=== PATIENT | female | born 1990 | race Caucasian/White ===

== ENCOUNTER 2016-08-07 07:53 | Day surgery (SDC) | payer MEDICAID ==
[2016-08-05 09:59] VITALS: BMI 22.2
[~2016-08-07 07:53] MED LIST: SODIUM CHLORIDE 0.9% 1,000 ML IV SCH
[2016-08-07 08:23] VITALS: RESP 18; TEMP 98
[2016-08-07 10:20] VITALS: BP 139/62; PULSE 92
--- NOTE | 2016-08-14 08:12 | CE ---
DATE OF SERVICE: TILT TABLE TEST Patient referred by Dr. Givens and Dr. Etienne. A 26-year-old female with recurrent dizzy spells for a tilt table test. Baseline 12-lead ECG shows sinus rhythm with normal IN interval, narrow QRS, normal ST segments. Cardiac intervals are normal. Incomplete right bundle branch block noted. QRS with 78 ms. Tilt table test was performed. Baseline blood pressure 131/79 mmHg. Baseline heart rate is 79 beats a minute. She was tilted upright at an angle of 70 degrees per protocol. Patient's blood pressure remained stable. Heart rate increased in the first initial 10 minutes. There was increase in heart rate, dropped to 109 beats a minute. Maximum heart rate is 121 beats a minute. She felt her heart pounding. No change in blood pressure. She was laid supine at the end of the procedure and the heart rate decreased to 95 beats a minute. IMPRESSION: 1. No evidence for neurocardiogenic syncope. 2. Possible mild orthostatic intolerance.
== END 2016-08-07 10:30 | disposition home or self-care (01) ==
LOC: CATHEP 07:53
PROVIDERS: ATTEND Internal Medicine Clinical Cardiac Electrophysiology
DX: R42 Dizziness and giddiness (principal); Z82.49 Family history of ischemic heart disease and other diseases of the circulatory system; Z88.0 Allergy status to penicillin
CPT/HCPCS: 81025; 93005; 93660

== ENCOUNTER → 2020-09-03 | Outpatient (CLI) | payer MEDICAID, BC ==
[2020-09-03 19:58] LABS: HCT 35.1 % (37.2-46.3); HGB 11.6 g/dL (12.0-15.0); MCH 32.7 pg (27.0-32.0); MCV 98.9 fL (80.0-97.0); Mean Platelet Volume 8.7 fL (9.5-12.2); Platelet Count 257 X 10*3/uL (140-440); RBC 3.55 X 10*6/uL (4.10-5.20); RDW 12.7 % (11.5-14.5); WBC 12.27 X 10*3/uL (4.50-10.00)
== END | disposition home or self-care (01) ==
LOC: LABWHC1 12:01
PROVIDERS: ATTEND Obstetrics & Gynecology Obstetrics
DX: Z36.9 Encounter for antenatal screening, unspecified (principal)
CPT/HCPCS: 36415; 82950; 85027

== ENCOUNTER 2020-11-26 06:02 | Inpatient (IN) | payer MEDICAID, BC ==
[2020-11-26] MEDS ORDERED: LIDOCAINE 0.5% (PF) 5 MG/ML (50 ML SDV) SQ PRN (06:22)
[2020-11-26] MEDS ORDERED: TERBUTALINE 1 MG/ML VIAL SQ PRN (06:22)
[2020-11-26] MEDS ORDERED: CARBOPROST TROMETHAMINE 250 MCG/ML 1 ML AMP IM PRN (06:22)
[2020-11-26] MEDS ORDERED: OXYTOCIN 10 UNIT/ML 1 ML VIAL IM PRN (06:22)
[2020-11-26] MEDS ORDERED: METHYLERGONOVINE 0.2 MG/ML 1 ML AMP IM PRN (06:22)
[2020-11-26] MEDS: LACTATED RINGERS 1,000 ML IV SCH ×2 (06:43→10:21)
[2020-11-26] MEDS: OXYTOCIN 30 UNITS/500 ML NS 30 UNIT in SALINE 1 500ML.BAG IV SCH ×2 (06:44→16:05)
[2020-11-26 07:11] LABS: Basophils % (A) 0 %; Eosinophils # (A) 0.1 k/uL (0-0.7); Eosinophils % (A) 1 %; HCT 36.8 % (34.0-46.0); HGB 11.9 gm/dL (11.4-16.0); Lymphocytes # (A) 1.8 k/uL (1.0-4.8); Lymphocytes % (A) 21 %; MCH 30.9 pg (25.0-35.0); MCHC 32.3 g/dL (31.0-37.0); MCV 95.6 fL (80.0-100.0); Mean Platelet Volume 6.8; Monocytes # (A) 0.6 k/uL (0-1.0); Monocytes % (A) 6 %; Neutrophils # (A) 6.3 k/uL (1.3-7.7); Neutrophils % (A) 70 %; Platelet Count 246 k/uL (150-450); RBC 3.86 m/uL (3.80-5.40); RDW 13.8 % (11.5-15.5); WBC 8.9 k/uL (3.8-10.6)
[2020-11-26] MEDS ORDERED: BUTORPHANOL 1 MG/ML 1 ML VIAL IV PRN (08:25)
[2020-11-26] MEDS ORDERED: ROPIVACAINE 5MG/ML 20ML VIAL ONE (10:31)
[2020-11-26] MEDS ORDERED: SODIUM CHLORIDE 0.9% 100 ML BAG ONE (10:31)
[2020-11-26] MEDS ORDERED: fentaNYL (PF) 50 MCG/ML 5 ML AMP ONE (10:31)
[2020-11-26] MEDS ORDERED: SIMETHICONE 80 MG CHEWABLE PO PRN (15:48)
[2020-11-26] MEDS ORDERED: ZOLPIDEM 5 MG TAB PO PRN (15:48)
[2020-11-26] MEDS ORDERED: diphenhydrAMINE 50 MG CAP PO PRN (15:48)
[2020-11-26] MEDS ORDERED: LANOLIN CREAM 5 GM TUBE TOPICAL PRN (15:48)
[2020-11-26] MEDS ORDERED: diphenhydrAMINE 50 MG/ML 1 ML VIAL IVP PRN ×2 (15:48)
[2020-11-26] MEDS ORDERED: diphenhydrAMINE 25 MG CAP PO PRN (15:48)
[2020-11-26] MEDS ORDERED: BENZOCAINE/MENTHOL SPRAY 1 GM/SPRAY AEROSOL TOPICAL PRN (15:48)
[2020-11-26] MEDS ORDERED: HYDROCORTISONE 2.5% RECTAL CREAM 30 GM TUBE RECTAL PRN (15:48)
[2020-11-26] MEDS ORDERED: HYDROcodone/APAP 5-325MG 1 EACH TAB PO PRN (15:48)
--- NOTE | 2020-11-26 15:52 | P.PROBDLV ---
Vaginal Delivery Note - . Vaginal Delivery Note: This is a 30-year-old 1 para 0 at 39-2/7 weeks that presented to labor and delivery for induction of labor. Patient been receiving routine care which had been essentially on compensated. Patient did contract COVID 19 during the . She has done well. She was admitted to labor and delivery Pitocin induction of labor was begun per hospital protocol. Patient underwent amniotomy and clear fluid was obtained. Patient did request epidural placement and this was placed by the anesthesia Department without difficulty. Patient progressed to complete began pushing and had a normal spontaneous vaginal delivery of a viable female at 1519, weight of 8 lbs. 3 oz. and Apgars of 9 and 9 at one and 5 minutes respectively. Patient did sustain a second degree midline vaginal laceration along with a periurethral laceration. After two-minute delayed the umbilical cord was doubly clamped and cut and the symptoms delivered spontaneously intact with a three-vessel cord. The second- degree midline laceration was repaired in usual fashion with 3-0 Rapide. The periurethral laceration was repaired with a single stitch of 4-0 chromic. Hemostasis was appreciated both lacerations. Rectal exam was performed and found to be normal. Uterus noted to be firm and below the umbilicus. Estimated blood loss 300 mL. Patient and tolerated delivery well and are resting comfortable he.
[2020-11-26] MEDS ORDERED: OXYTOCIN 30 UNITS/500 ML NS 30 UNIT in SALINE 1 500ML.BAG IV SCH (16:00)
[2020-11-26] MEDS: IBUPROFEN 600 MG TAB PO SCH (16:04)
--- NOTE | 2020-11-26 18:01 | P.HPOB ---
History of Present Illness H&P Date: 11/26/20 Chief Complaint: IUP at 39 weeks This is a 30-year-old 1 para 0 at 39 weeks of that presents for induction of labor. Patient has been receiving routine care which has been essentially uncomplicated. Patient notes good movement denies vaginal bleeding or loss of fluid. She has been malu regularly for weeks now. Patient has a blood type of AB+, rubella status nonimmune, hepatitis B surface engine negative, HIV negative, RPR negative, GBS is positive. Review of Systems Constitutional: Denies chills, Denies fatigue, Denies fever Ears, nose, mouth and throat: Denies headache Cardiovascular: Reports leg edema Respiratory: Denies dyspnea Gastrointestinal: Denies constipation, Denies diarrhea, Denies nausea, Denies vomiting Genitourinary: Reports Past Medical History Past Medical History: No Reported History Additional Past Medical History / Comment(s): Fainted @ work, states that is why she is having this test. See Dr. Gonzales's H&P. History of Any Multi-Drug Resistant Organisms: None Reported Past Surgical History: No Surgical Hx Reported Additional Past Surgical History / Comment(s): [place] teeth. See Dr. Gonzales's H&P. Past Anesthesia/Blood Transfusion Reactions: Postoperative Nausea & Vomiting (PONV) Past Psychological History: No Psychological Hx Reported Smoking Status: Never smoker Past Alcohol Use History: None Reported, Rare Past Drug Use History: None Reported - Past Family History Mother Family Medical History: No Reported History Additional Family Medical History / Comment(s): Ulcerative Colitis Father Family Medical History: Hypertension Medications and Allergies Home Medications Medication Instructions Recorded Confirmed Type Multivitamins, Thera [Multivitamin] 1 tab PO DAILY 08/05/16 11/26/20 History Aspirin 81 mg PO DAILY 11/26/20 11/26/20 History Cetirizine HCl [Zyrtec] 10 mg PO DAILY 11/26/20 11/26/20 History Allergies Allergy/AdvReac Type Severity Reaction Status Date / Time Penicillins Allergy Rash/Hives Verified 11/26/20 06:20 Exam Osteopathic Statement: *. No significant issues noted on an osteopathic structural exam other than those noted in the History and Physical/Consult. 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 heart tones returned be category 1 and she is malu every 2-3 minutes. Results Result Diagrams: 11/26/20 06:38 Assessment and Plan (1) Term Current Visit: Yes Status: Acute Code(s): Z34.90 - ENCNTR FOR SUPRVSN OF NORMAL , UNSP, UNSP TRIMESTER SNOMED Code(s): 10542888 Plan: 30-year-old at 39 weeks of presents for induction of labor. Pitocin induction of labor is begun per hospital protocol. Options for analgesia are discussed including Stadol and epidural patient will consider. Despite spontaneous vaginal delivery later today.
[2020-11-26] MEDS: SENNOSIDES-DOCUSATE SODIUM 1 EACH TAB PO SCH (19:40)
[2020-11-26] MEDS: ACETAMINOPHEN TAB 325 MG TAB PO PRN (19:40)
[2020-11-26 20:56] VITALS: RESP 16
[2020-11-27] MEDS: IBUPROFEN 600 MG TAB PO SCH ×3 (00:01→16:07)
[2020-11-27] MEDS: ACETAMINOPHEN TAB 325 MG TAB PO PRN ×2 (03:49→11:47)
[2020-11-27] MEDS ORDERED: MEASLES-MUMPS-RUBELLA VACC/PF 12,500 UNIT/0.5 ML VIAL SQ ONE (05:31)
--- NOTE | 2020-11-27 07:43 | P.DS ---
Providers Date of admission: 11/26/20 06:02 Expected date of discharge: 11/27/20 Attending physician: Ora Bergman Primary care physician: Stated None - Discharge Diagnosis(es) (1) Term Current Visit: Yes Status: Acute (2) Status post vaginal delivery Current Visit: Yes Status: Acute Hospital Course: This is a 30-year-old G1 now P1 that presented to labor and delivery at 39-2/7 weeks for planned induction of labor. Patient had been receiving routine care which has been essentially uncomplicated. Patient was noted to be 2 cm at 36 weeks and had requested induction of labor. Patient was admitted to labor and delivery and Pitocin induction of labor was begun. Patient progressed through labor eventually becoming uncomfortable and requesting epidural placement. Epidural was placed without difficulty by the anesthesia department. Patient progressed to complete began pushing and had a normal spontaneous vaginal delivery of a viable female infant at 1519, weight of 8 lbs. 3 oz. with Apgars of 9 and 9 at one and 5 minutes respectively. Patient did sustain a second-degree vaginal laceration was repaired in the usual fashion with 3-0 Rapide. In addition she had a periurethral laceration which was repaired with a single-tooth that she of 4-0 chromic. Patient's course has been uneventful. On this day #1 she is ambulating and voiding without difficulty. She is tolerating a regular diet without nausea or vomiting. She is breast-feeding without difficulty. She states she is feeling well and would like discharge home at 24 hours. Patient Condition at Discharge: Good Plan - Discharge Summary New Discharge Prescriptions: No Action Multivitamins, Thera [Multivitamin] 1 tab PO DAILY Aspirin 81 mg PO DAILY Cetirizine HCl [Zyrtec] 10 mg PO DAILY Discharge Medication List Multivitamins, Thera [Multivitamin] 1 tab PO DAILY 08/05/16 [History] Aspirin 81 mg PO DAILY 11/26/20 [History] Cetirizine HCl [Zyrtec] 10 mg PO DAILY 11/26/20 [History] Follow up Appointment(s)/Referral(s): Ora Bergman DO [Doctor of Osteopathic Medicine] - 4 Weeks Patient Instructions/Handouts: Vaginal Delivery (GEN), Vaginal Delivery (DC) Discharge Disposition: HOME SELF-CARE
[2020-11-27] MEDS: SENNOSIDES-DOCUSATE SODIUM 1 EACH TAB PO SCH (11:06)
[2020-11-27 16:44] VITALS: BP 125/75; PULSE 89; TEMP 97.9
== END 2020-11-27 16:20 | disposition home or self-care (01) | DRG 807 ==
LOC: 4FBP 06:02
PROVIDERS: ADMIT Obstetrics & Gynecology Obstetrics; ATTEND Obstetrics & Gynecology Obstetrics
PROC: 10E0XZZ Delivery of Products of Conception, External Approach (ICD-10-PCS; principal; 2020-11-26)
PROC: 0KQM0ZZ Repair Perineum Muscle, Open Approach (ICD-10-PCS; 2020-11-26)
DX: O70.1 Second degree perineal laceration during delivery (principal); Z37.0 Single live birth; Z3A.39 39 weeks gestation of pregnancy; Z79.82 Long term (current) use of aspirin; Z82.49 Family history of ischemic heart disease and other diseases of the circulatory system
CPT/HCPCS: 85025; 86850; 86900; 86901; 88307; 90707

== ENCOUNTER 2022-03-27 06:00 | Inpatient (IN) | payer BC ==
[2022-03-27] MEDS ORDERED: CARBOPROST TROMETHAMINE 250 MCG/ML 1 ML AMP IM PRN (06:18)
[2022-03-27] MEDS ORDERED: TERBUTALINE 1 MG/ML VIAL SQ PRN (06:18)
[2022-03-27] MEDS ORDERED: OXYTOCIN 10 UNIT/ML 1 ML VIAL IM PRN (06:18)
[2022-03-27] MEDS ORDERED: METHYLERGONOVINE 0.2 MG/ML 1 ML AMP IM PRN (06:18)
[2022-03-27] MEDS ORDERED: LIDOCAINE 0.5% (PF) 5 MG/ML (50 ML SDV) SQ PRN (06:18)
[2022-03-27] MEDS ORDERED: OXYTOCIN 30 UNITS/500 ML NS 30 UNIT in SALINE 1 500ML.BAG IV SCH ×2 (06:30→13:15)
[2022-03-27 06:32] LABS: Basophils # (A) 0.1 k/uL (0-0.2); Basophils % (A) 1 %; Eosinophils # (A) 0.2 k/uL (0-0.7); Eosinophils % (A) 1 %; HCT 35.6 % (34.0-46.0); HGB 11.5 gm/dL (11.4-16.0); Hypochromasia Slight; Lymphocytes # (A) 2.2 k/uL (1.0-4.8); Lymphocytes % (A) 20 %; MCHC 32.2 g/dL (31.0-37.0); MCV 93.3 fL (80.0-100.0); Mean Platelet Volume 7.3; Monocytes # (A) 0.7 k/uL (0-1.0); Monocytes % (A) 6 %; Neutrophils # (A) 7.9 k/uL (1.3-7.7); Neutrophils % (A) 71 %; Platelet Count 280 k/uL (150-450); RBC 3.81 m/uL (3.80-5.40); RDW 13.5 % (11.5-15.5); WBC 11.1 k/uL (3.8-10.6)
[2022-03-27] MEDS: LACTATED RINGERS 1,000 ML IV SCH ×2 (06:33→11:00)
--- NOTE | 2022-03-27 08:54 | P.HPOB ---
History of Present Illness H&P Date: 03/27/22 Chief Complaint: IUP at 39 weeks This is a 31-year-old at 39-2/7 weeks that presents to labor and delivery for induction of labor. Patient has been receiving routine care which has been essentially uncomplicated. Patient notes good movement occasional contractions but denies loss of fluid or vaginal bleeding. On bloodwork this patient blood type of AB+, rubella status immune, B surface antigen negative, group beta strep is negative HIV negative, RPR is nonreactive. Review of Systems Constitutional: Denies chills, Denies fatigue, Denies fever Ears, nose, mouth and throat: Denies headache Cardiovascular: Reports leg edema Respiratory: Denies dyspnea Gastrointestinal: Denies constipation, Denies diarrhea Genitourinary: Reports Past Medical History Past Medical History: No Reported History Additional Past Medical History / Comment(s): Fainted @ work, states that is why she is having this test. See Dr. Gonzales's H&P. History of Any Multi-Drug Resistant Organisms: None Reported Past Surgical History: No Surgical Hx Reported Additional Past Surgical History / Comment(s): [place] teeth. See Dr. Gonzales's H&P. Past Anesthesia/Blood Transfusion Reactions: Postoperative Nausea & Vomiting (PONV) Past Psychological History: No Psychological Hx Reported Smoking Status: Never smoker Past Alcohol Use History: None Reported, Rare Past Drug Use History: None Reported - Past Family History Mother Family Medical History: No Reported History Additional Family Medical History / Comment(s): Ulcerative Colitis Father Family Medical History: Hypertension Medications and Allergies Home Medications Medication Instructions Recorded Confirmed Type Multivitamins, Thera [Multivitamin] 1 tab PO DAILY 08/05/16 03/27/22 History Aspirin 81 mg PO DAILY 11/26/20 03/27/22 History Cetirizine HCl [Zyrtec] 10 mg PO DAILY 11/26/20 03/27/22 History Allergies Allergy/AdvReac Type Severity Reaction Status Date / Time Penicillins Allergy Rash/Hives Verified 03/27/22 06:15 Exam Osteopathic Statement: *. No significant issues noted on an osteopathic structural exam other than those noted in the History and Physical/Consult. 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 Breathing is noted to nonlabored, heart has regular rhythm, abdomen is gravid and appropriate for gestational age, on cervical exam she is 4/80/-2 station a mniotomy is performed and clear fluid was obtained. heart tones are be category 1 and she is malu every 3 minutes on 6 of Pitocin. Results Result Diagrams: 03/27/22 06:20 Abnormal Lab Results - Last 24 Hours (Table) 03/27/22 Range/Units 06:20 WBC 11.1 H (3.8-10.6) k/uL Neutrophils # 7.9 H (1.3-7.7) k/uL Assessment and Plan (1) Term Current Visit: No Status: Acute Code(s): Z34.90 - ENCNTR FOR SUPRVSN OF NORMAL , UNSP, UNSP TRIMESTER SNOMED Code(s): 50635992 Plan: 31-year-old at 39-2/7 weeks presents for elective induction of labor. Pitocin is begun per hospital protocol. Patient does request epidural and anesthesia is notified. Anticipate spontaneous vaginal delivery.
[2022-03-27] MEDS ORDERED: diphenhydrAMINE 25 MG CAP PO PRN (13:08)
[2022-03-27] MEDS ORDERED: diphenhydrAMINE 50 MG CAP PO PRN (13:08)
[2022-03-27] MEDS ORDERED: ZOLPIDEM 5 MG TAB PO PRN (13:08)
[2022-03-27] MEDS ORDERED: HYDROCORTISONE 2.5% RECTAL CREAM 30 GM TUBE RECTAL PRN (13:08)
[2022-03-27] MEDS ORDERED: SIMETHICONE 80 MG CHEWABLE PO PRN (13:08)
[2022-03-27] MEDS ORDERED: LANOLIN CREAM 5 GM TUBE TOPICAL PRN (13:08)
[2022-03-27] MEDS ORDERED: BENZOCAINE/MENTHOL SPRAY 1 GM/SPRAY AEROSOL TOPICAL PRN (13:08)
[2022-03-27] MEDS ORDERED: diphenhydrAMINE 50 MG/ML 1 ML VIAL IVP PRN ×2 (13:08)
--- NOTE | 2022-03-27 13:08 | P.PROBDLV ---
Vaginal Delivery Note - . Vaginal Delivery Note: This is a 31-year-old at 39-2/7 weeks that presented to labor and delivery for induction of labor. Patient was admitted to labor and delivery and Pitocin induction of labor was begun per hospital protocol. Patient underwent amniotomy clear fluid was obtained. Patient quickly became uncomfortable and requested epidural placement. Epidural was placed without difficulty by the anesthesia department. Patient made progress towards complete once complete she was placed in the modified lithotomy position and with excellent maternal effort brought the baby down to a presentation. With additional effort she underwent a normal spontaneous vaginal delivery of a viable female at 1248, weight of 9 lbs. 2 oz., Apgars of 9 and 9 at one and 5 minutes respectively. After two-minute delayed the umbo cord was doubly clamped and cut and the infant was handed to the maternal abdomen. A spontaneous cry was noted at . The placenta was delivered spontaneously intact with a three-vessel cord being noted. The uterus is noted be firm below the umbilicus. During pushing partially 200 mL of clear yellow urine were drained from the bladder. On inspection the patient's vaginal vault a first ray laceration was appreciated this was repaired in the usual fashion with 3-0 Rapide. Rectal exam was performed and found to be normal in nature with no defects appreciated. S May blood loss 100 mL. All counts were correct 2 at the end of delivery. Patient and infant tolerated delivery well and are resting comfortable he.
[2022-03-27] MEDS: IBUPROFEN 600 MG TAB PO SCH ×2 (14:56→21:59)
[2022-03-27] MEDS: ACETAMINOPHEN TAB 325 MG TAB PO PRN (19:22)
[2022-03-27] MEDS: SENNOSIDES-DOCUSATE SODIUM 1 EACH TAB PO SCH (19:24)
[2022-03-28] MEDS: IBUPROFEN 600 MG TAB PO SCH (06:02)
[2022-03-28] MEDS: SENNOSIDES-DOCUSATE SODIUM 1 EACH TAB PO SCH (07:52)
[2022-03-28] MEDS: ACETAMINOPHEN TAB 325 MG TAB PO PRN (07:53)
--- NOTE | 2022-03-28 08:40 | P.DS ---
Providers Date of admission: 03/27/22 06:00 Expected date of discharge: 03/28/22 Attending physician: Ora Bergman Primary care physician: Stated None - Discharge Diagnosis(es) (1) Term Current Visit: No Status: Acute (2) Obstetric vaginal laceration with first degree perineal laceration Current Visit: Yes Status: Acute (3) Status post vaginal delivery Current Visit: No Status: Acute Hospital Course: 31-year-old G2 now P2 presented at 39-2/7 weeks for induction of labor. Patient has been receiving routine care from myself without complication. Patient was admitted to labor and delivery and Pitocin induction of labor was begun. Patient underwent amniotomy and clear fluid was obtained. Patient quickly requested epidural as she was uncomfortable after amniotomy. Patient progressed to complete and had a normal spent taste vaginal delivery of a viable female infant at 1248, weight of 9 lbs. 2 oz. Patient did sustain a first- degree vaginal laceration which was repaired in usual fashion with 3-0 Rapide. Patient has done well . On this day #1 she is ambulating and voiding without difficulty. She is tolerating a regular diet without nausea or vomiting. Her pain is well-controlled. She denies concerns. She does wish discharge home. Patient Condition at Discharge: Good Plan - Discharge Summary New Discharge Prescriptions: No Action Multivitamins, Thera [Multivitamin] 1 tab PO DAILY Aspirin 81 mg PO DAILY Cetirizine HCl [Zyrtec] 10 mg PO DAILY Discharge Medication List Multivitamins, Thera [Multivitamin] 1 tab PO DAILY 08/05/16 [History] Aspirin 81 mg PO DAILY 11/26/20 [History] Cetirizine HCl [Zyrtec] 10 mg PO DAILY 11/26/20 [History] Follow up Appointment(s)/Referral(s): Ora Bergman DO [Doctor of Osteopathic Medicine] - 4 Weeks Patient Instructions/Handouts: Vaginal Delivery (GEN), Vaginal Delivery (DC) Discharge Disposition: HOME SELF-CARE
[2022-03-28 10:22] VITALS: BP 137/77; PULSE 82; RESP 18; TEMP 96.9
[2022-03-28] MEDS ORDERED: SODIUM CHLORIDE 0.9% 100 ML BAG ONE (10:33)
[2022-03-28] MEDS ORDERED: ROPIVACAINE 5 MG/ML 20 ML AMPULE ONE (10:33)
[2022-03-28] MEDS ORDERED: fentaNYL (PF) 50 MCG/ML 5 ML AMP ONE (10:33)
== END 2022-03-28 13:40 | disposition home or self-care (01) | DRG 807 ==
LOC: 4FBP 06:00
PROVIDERS: ADMIT Obstetrics & Gynecology Obstetrics; ATTEND Obstetrics & Gynecology Obstetrics
PROC: 10907ZC Drainage of Amniotic Fluid, Therapeutic from Products of Conception, Via Natural or Artificial Opening (ICD-10-PCS; principal; 2022-03-27)
PROC: 0HQ9XZZ Repair Perineum Skin, External Approach (ICD-10-PCS; principal; 2022-03-27)
PROC: 10E0XZZ Delivery of Products of Conception, External Approach (ICD-10-PCS; principal; 2022-03-27)
DX: O70.0 First degree perineal laceration during delivery (principal); Z37.0 Single live birth; Z3A.39 39 weeks gestation of pregnancy; Z79.82 Long term (current) use of aspirin; Z82.49 Family history of ischemic heart disease and other diseases of the circulatory system
CPT/HCPCS: 85025; 86850; 86900; 86901